=== PATIENT | female | born 1970 | race Caucasian/White ===

== ENCOUNTER 2022-04-06 10:10 | Day surgery (SDC) | payer BC ==
[~2022-04-06 10:10] MED LIST: Lactated Ringers 1,000 ML IV SCH; Midazolam 1 MG/ML 2 ML SDV ONE; Propofol 200 MG/20 ML SDV ONE; Sodium Chloride 0.9% 10 ML Syringe FLUSH PRN
== END 2022-04-06 12:36 | disposition home or self-care (01) ==
LOC: LL.SDS 10:10
PROVIDERS: ATTEND Surgery
DX: Z12.11 Encounter for screening for malignant neoplasm of colon (principal); J30.9 Allergic rhinitis, unspecified; K21.9 Gastro-esophageal reflux disease without esophagitis; Z79.899 Other long term (current) drug therapy
CPT/HCPCS: 45378; J2250; J2704; J7120; 00812